=== PATIENT | female | born 1955 | race Caucasian/White ===

== ENCOUNTER → 2018-01-06 | Outpatient (CLI) | payer BC | END | disposition home or self-care (01) | LOC: CT 09:03 | DX: J43.9 Emphysema, unspecified (principal); I25.10 Atherosclerotic heart disease of native coronary artery without angina pectoris; K57.30 Diverticulosis of large intestine without perforation or abscess without bleeding; K44.9 Diaphragmatic hernia without obstruction or gangrene | CPT/HCPCS: 71250 ==

== ENCOUNTER 2018-09-02 19:01 | Emergency (ER) | payer BC ==
[~2018-09-02] VITALS: Ht 154.9 cm; Wt 63.5 kg
[2018-09-02 21:05] LABS: BILIRUBIN,URINE NEGATIVE (NEG); CLARITY,URINE CLEAR; COLOR,URINE YELLOW; NITRITE,URINE NEGATIVE (NEG); PH,URINE 5.5; PROTEIN,URINE NEGATIVE (NEG-TRACE); UROBILINOGEN,URINE 0.2 mg/dL (0.2 mg/dL)
[2018-09-02 21:16] LABS: BACTERIA,URINE FEW /HPF (0-FEW); RBC,URINE OCC /HPF (0-2); SQUAMOUS EPITHELIAL CELL,UR MOD /LPF
[2018-09-02] MEDS ORDERED: HYDROcodone/APAP 5/325MG 1 TAB TABLET PO ONE (21:30)
[2018-09-02] MEDS ORDERED: CYCLOBENZAPRINE 10 MG TABLET. PO ONE (21:30)
--- NOTE | 2018-09-02 21:41 | PHYS DOC ---
Past Medical History Past Medical History: COPD, Hypertension, Other Additional Past Medical Histor: OSTEOPOROSIS Past Surgical History: Tonsillectomy Additional Past Surgical Histo: D&C Alcohol Use: None Drug Use: None Adult General Chief Complaint Chief Complaint: MECHANICAL FALL HPI HPI Patient is a 63 year old female with a history of hypertension, COPD, currently smoker, chronic neck and low back pain, who presents today complaining of falling. Patient states she was walking down her steps when she fell down 14 steps. Patient states she believes she passed out for exactly 15 minutes, she states she timed herself when she passed out. She fell down at 6 PM but presented in the ED much later. She is complaining of 10 out of 10 neck pain, mid and low back pain. She is requesting pain medicine on arrival to the ED. She is also requesting we check her urine stating she had a UTI and was treated, but would like to find out if the infection has cleared out. Patient is up ambulating with her cane with no difficulties. She also states she has a new inhaler but that is making her lips and dry and causing her thrash and tingling sensation to the lips. Denies any throat tongue or lip swelling. Review of Systems Review of Systems Constitutional: Denies fever or chills [] Eyes: Denies change in visual acuity, redness, or eye pain [] HENT: Reports thrash and tingling sensation to the lips, reports dry lips. Reports dry mouth. Denies nasal congestion or sore throat [] Respiratory: Denies cough or shortness of breath [] Cardiovascular: No additional information not addressed in HPI [] GI: Denies abdominal pain, nausea, vomiting, bloody stools or diarrhea [] : Denies dysuria or hematuria [] Musculoskeletal: Reports neck and mid and low back pain Integument: Denies rash or skin lesions [] Neurologic: Denies headache, focal weakness or sensory changes [] All other systems were reviewed and found to be within normal limits, except as documented in this note. Current Medications Current Medications Current Medications Medications (Trade) Dose Ordered Sig/Lilia Start Time Stop Time Status Last Admin Dose Admin Acetaminophen/ Hydrocodone Bitart (Lortab 5/325) 2 tab 1X ONCE 09/02/18 21:30 09/02/18 21:31 DC Cyclobenzaprine HCl (Flexeril) 10 mg 1X ONCE 09/02/18 21:30 09/02/18 21:31 DC Allergies Allergies Allergies Coded Allergies Type Severity Reaction Last Updated Verified No Known Drug Allergies 09/02/18 No Physical Exam Physical Exam Constitutional: Well developed, well nourished, no acute distress, non-toxic appearance. [] HENT: Normocephalic, atraumatic, bilateral external ears normal, oropharynx moist, no oral exudates, nose normal. [] Eyes: PERRLA, EOMI, conjunctiva normal, no discharge. [] Neck: Normal range of motion, slight paraspinal muscle tenderness as well as midline tenderness to lower cervical spine, supple, no stridor. [] Cardiovascular:Heart rate regular rhythm, no murmur [] Lungs & Thorax: Bilateral breath sounds clear to auscultation [] Abdomen: Bowel sounds normal, soft, no tenderness, no masses, no pulsatile masses. [] Skin: Warm, dry, no erythema, no rash. [] Back: Diffuse paraspinal muscle tenderness as well as midline tenderness to thoracic and lumbar spine tenderness, no CVA tenderness. [] Extremities: No tenderness, no cyanosis, no clubbing, ROM intact, no edema. [] Neurologic: Alert and oriented X 3, normal motor function, normal sensory function, no focal deficits noted. [] Psychologic: Affect normal, judgement normal, mood normal. [] Current Patient Data Vital Signs Vital Signs Date Time Temp Pulse Resp B/P (MAP) Pulse Ox O2 Delivery O2 Flow Rate FiO2 09/02/18 20:31 99.3 96 20 129/86 (100) 100 Room Air 99.3 Lab Values Laboratory Tests Test 09/02/18 20:47 Urine Collection Type Unknown Urine Color Yellow Urine Clarity Clear Urine pH 5.5 Urine Specific [place] 1.015 Urine Protein Negative mg/dL (NEG-TRACE) Urine Glucose (UA) Negative mg/dL (NEG) Urine Ketones (Stick) Negative mg/dL (NEG) Urine Blood Negative (NEG) Urine Nitrite Negative (NEG) Urine Bilirubin Negative (NEG) Urine Urobilinogen Dipstick 0.2 mg/dL (0.2 mg/dL) Urine Leukocyte Esterase Trace (NEG) Urine RBC Occ /HPF (0-2) Urine WBC 1-4 /HPF (0-4) Urine Squamous Epithelial Cells Mod /LPF Urine Bacteria Few /HPF (0-FEW) Urine Mucus Mod /LPF EKG EKG [] Radiology/Procedures Radiology/Procedures []PROCEDURE: CT HEAD AND CERVICAL SPINE WO PQRS Compliance statement: One or more of the following individualized dose reduction techniques were utilized for this examination: 1. Automated exposure control. 2. Adjustment of the mA and/or kV according to patient size. 3. Use of iterative reconstruction technique. Indication:SYNCOPE AND FALL DOWN 14 STAIRS NECK AND BACK PAIN NO PREV TECHNIQUE: CT head without IV contrast COMPARISON:None FINDINGS: No pathologic extra-axial or intra-axial fluid collection. The ventricles and basal cisterns are within normal limits. No acute intracranial bleed. No focal loss of guillen-white differentiation. Orbits within normal limits. No acute calvarial fractures. Visualized paranasal sinuses and mastoid air cells are clear. IMPRESSION: No acute findings. Indication:SYNCOPE AND FALL DOWN 14 STAIRS NECK AND BACK PAIN NO PREV TECHNIQUE: CT of the cervical spine without IV contrast with multiplanar reformats. COMPARISON:None FINDINGS: The cervical spine is in normal anatomic alignment. Atlantoaxial joint interval is preserved. No compression deformities. Facet joints are in normal anatomic alignment. No acute fractures. The noncontrast appearance of the neck soft tissues is within normal limits. Clear lung apices. IMPRESSION: No acute fractures. INDICATION: Trauma TECHNIQUE: CT thoracic and lumbar spine spine COMPARISON: None FINDINGS: Thoracic spine: There is mild dextroscoliosis of the midthoracic spine. No acute fractures. No compression deformities. No degenerative changes. Moderate sliding hiatal hernia. Visualized lungs demonstrate mild paraseptal emphysema. Lumbar spine: Mild levoscoliosis of the lumbar spine. There are 5 lumbar type vertebral bodies. No compression deformities. Facet joints are in normal anatomic alignment. No significant degenerative disc disease. No acute fractures. Nonobstructing stone measuring 6 mm fibroid uterus. IMPRESSION: 1. No acute compression deformities in the thoracic or lumbar spine. No acute fractures. 2. Nonobstructing right renal stone. Fibroid uterus. Electronically signed by: Sin Gould DO (09/02/2018 9:57 PM) [facility] DICTATED and SIGNED BY: SIN GOULD DO DATE: 09/02/182142 Course & Med Decision Making Course & Med Decision Making Pertinent Labs and Imaging studies reviewed. (See chart for details) This is a 63-year-old female patient presenting to the ED today with multiple complaints. Patient reports she fell down 14 steps, she states she had a loss of consciousness for 15 minutes, she states she time to herself during these loss of consciousness event. She is up ambulating in the ED with her [place] no difficulties. She is also complaining of neck pain, mid and low back pain after falling. CTs were ordered. She also requested we check her urine to make sure her UTI has cleared up, she completed antibiotics a couple days ago. Urine analysis is negative for infection. She is also complaining of tingling to her lips dry mouth and thrash caused by her new inhaler. Patient does not have thrush on physical exam. She does not have any anaphylactic reaction symptoms. Recommended she tries to rinse her mouth every time she uses this new inhaler. Recommended she follows up with her own PCP next week. 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 She threatened to sign out AMA. She is a smoker and was encouraged to consider smoking cessation. CT of the head, cervical spine, thoracic and lumbar spine interpreted by radiologist were negative for any acute findings. Results were given to patient. She asked to follow pain medicine, informed her I will write her nonnarcotic pain medicine. She stated she is going to the bar right not to drink. Dragon Disclaimer Dragon Disclaimer This electronic medical record was generated, in whole or in part, using a voice recognition dictation system. Departure Departure Impression: Primary Impression: Fall down steps Additional Impressions: Cervical strain, acute Lumbar contusion Contusion of thoracic wall Smoking addiction Disposition: 01 HOME, SELF-CARE Condition: STABLE Referrals: NON,STAFF (PCP) follow up with your doctor in one week Patient Instructions: Cervical Sprain, Contusion, [id number], Fall Prevention and Home Safety, Smoking Cessation Additional Instructions: You were evaluated in the emergency room after falling. Your CT of the head, neck, mid and low back were negative for any acute findings. Your urine analysis shows your infection is clearing up. Consider smoking cessation. Follow -up with your next week Scripts Cyclobenzaprine Hcl (CYCLOBENZAPRINE HCL) 10 Mg Tablet 1 TAB PO TID, #30 TAB Prov: MUTUNGA,JALIL CORTEZ 09/02/18 Diclofenac Sodium (DICLOFENAC SODIUM) 50 Mg Tablet.dr 1 TAB PO BID PRN for PAIN, #20 TAB 0 Refills Prov: JEDJALIL CORTEZ 09/02/18 Problem Qualifiers Primary Impression: Fall down steps Encounter type: initial encounter Qualified Codes: W10.8XXA - Fall (on) ( from) other stairs and steps, initial encounter Additional Impressions: Cervical strain, acute Encounter type: initial encounter Qualified Codes: S16.1XXA - Strain of muscle, fascia and tendon at neck level, initial encounter Lumbar contusion Encounter type: initial encounter Qualified Codes: S30.0XXA - Contusion of lower back and pelvis, initial encounter Contusion of thoracic wall Encounter type: initial encounter Contusion of thoracic wall detail: unspecified area of thoracic wall Qualified Codes: S20.20XA - Contusion of thorax, unspecified, initial encounter JEDJALIL CORTEZ Sep 02, 2018 21:41
[2018-09-02 22:00] VITALS: BP 124/77
--- NOTE | 2018-09-02 22:01 | RAD ---
PQRS Compliance statement: One or more of the following individualized dose reduction techniques were utilized for this examination: 1. Automated exposure control. 2. Adjustment of the mA and/or kV according to patient size. 3. Use of iterative reconstruction technique. Indication:SYNCOPE AND FALL DOWN 14 STAIRS NECK AND BACK PAIN NO PREV TECHNIQUE: CT head without IV contrast COMPARISON:None FINDINGS: No pathologic extra-axial or intra-axial fluid collection. The ventricles and basal cisterns are within normal limits. No acute intracranial bleed. No focal loss of guillen-white differentiation. Orbits within normal limits. No acute calvarial fractures. Visualized paranasal sinuses and mastoid air cells are clear. IMPRESSION: No acute findings. Indication:SYNCOPE AND FALL DOWN 14 STAIRS NECK AND BACK PAIN NO PREV TECHNIQUE: CT of the cervical spine without IV contrast with multiplanar reformats. COMPARISON:None FINDINGS: The cervical spine is in normal anatomic alignment. Atlantoaxial joint interval is preserved. No compression deformities. Facet joints are in normal anatomic alignment. No acute fractures. The noncontrast appearance of the neck soft tissues is within normal limits. Clear lung apices. IMPRESSION: No acute fractures. INDICATION: Trauma TECHNIQUE: CT thoracic and lumbar spine spine COMPARISON: None FINDINGS: Thoracic spine: There is mild dextroscoliosis of the midthoracic spine. No acute fractures. No compression deformities. No degenerative changes. Moderate sliding hiatal hernia. Visualized lungs demonstrate mild paraseptal emphysema. Lumbar spine: Mild levoscoliosis of the lumbar spine. There are 5 lumbar type vertebral bodies. No compression deformities. Facet joints are in normal anatomic alignment. No significant degenerative disc disease. No acute fractures. Nonobstructing stone measuring 6 mm fibroid uterus. IMPRESSION: 1. No acute compression deformities in the thoracic or lumbar spine. No acute fractures. 2. Nonobstructing right renal stone. Fibroid uterus. Electronically signed by: Sin Aguilera DO (09/02/2018 9:57 PM) [facility]
[2018-09-02] MEDS ORDERED: CYCL10TA2 PO (22:25)
[2018-09-02] MEDS ORDERED: DICL50TA4 PO (22:25)
== END 2018-09-02 22:50 | disposition home or self-care (01) ==
LOC: ER 19:01
DX: S16.1XXA Strain of muscle, fascia and tendon at neck level, initial encounter (principal); S30.0XXA Contusion of lower back and pelvis, initial encounter; S20.20XA Contusion of thorax, unspecified, initial encounter; G89.29 Other chronic pain; F17.200 Nicotine dependence, unspecified, uncomplicated; J44.9 Chronic obstructive pulmonary disease, unspecified; I10 Essential (primary) hypertension; M81.0 Age-related osteoporosis without current pathological fracture; Z90.89 Acquired absence of other organs; W10.8XXA Fall (on) (from) other stairs and steps, initial encounter; Y93.01 Activity, walking, marching and hiking; Y92.89 Other specified places as the place of occurrence of the external cause; Y99.8 Other external cause status
CPT/HCPCS: 70450; 72125; 72128; 72131; 81001; 87086; 99285-25